=== PATIENT | male | born 2005 | race Two or more races ===

== ENCOUNTER 2024-02-29 18:41 | Observation (INO) ==
[2024-02-29] MEDS: SODIUM CHLORIDE 0.9% 1,000 ML IV ONE (19:34)
[2024-02-29] MEDS: KETOROLAC TROMETHAMINE 15 MG/ML VIAL IV STA (19:37)
[2024-02-29] MEDS: ONDANSETRON INJ 2 MG/ML 2 ML VIAL IV STA (19:38)
[2024-02-29 19:48] LABS: Basophils # (auto) 0.01 K/uL (0.00-0.20); Basophils % (auto) 0.1 %; Eosinophils # (auto) 0.06 K/uL (0.00-0.50); Eosinophils % (auto) 0.5 %; Hematocrit (blood only) 44.9 % (42.0-52.0); Hemoglobin 15.3 g/dl (14.0-18.0); Immature Granulocytes # (auto) 0.03 K/uL (0.01-0.20); Immature Granulocytes % (auto) 0.3 %; Lymphocytes # (auto) 1.28 K/uL (1.20-3.40); Lymphocytes % (auto) 11.5 %; Mean Corpuscular Hemoglobin 30.6 pg (25.0-34.0); Mean Corpuscular Hgb Conc 34.1 g/dL (32.0-36.0); Mean Corpuscular Volume 89.8 fL (80.0-100.0); Mean Platelet Volume 9.6 fL (9.4-12.4); Monocytes # (auto) 0.53 K/uL (0.11-0.59); Monocytes % (auto) 4.7 %; Neutrophils # (auto) 9.26 K/uL (1.40-6.50); Neutrophils % (auto) 82.9 %; Platelet Count 196 K/uL (130-400); RDW Coefficient of Variation 12.2 % (11.5-14.5); White Blood Count 11.17 K/ul (4.8-10.8)
[2024-02-29 20:03] LABS: Alanine Aminotransferase 24 U/L (7-52); Albumin Level 4.7 gm/dl (3.4-5.0); Alkaline Phosphatase 78 U/L (34-104); Anion Gap 4 (3-11); Aspartate Aminotransferase 22 U/L (13-39); BUN Creatinine Ratio 16.9 (10-20); Bilirubin Direct 0.2 mg/dl (0-0.2); Blood Urea Nitrogen 13 mg/dl (6-23); Calcium 9.9 mg/dl (8.6-10.3); Carbon Dioxide 30 mmol/L (21-32); Chloride 104 mmol/L (98-107); Creatinine Clr Calc Pharmacy 135.5 ml/min; Est GFR (African American) > 150.0 ml/min; Est GFR (Non-African American) 130.6 ml/min; Glucose 141 mg/dl (70-99(Fasting)); Lipase 10 U/L (11-82); Potassium 3.5 mmol/L (3.5-5.1); Sodium 138 mmol/L (136-145); Total Protein 7.2 gm/dl (6.0-8.3)
[2024-02-29] MEDS: OPTIRAY 320 100ml IV ONE (22:08)
--- NOTE | 2024-03-01 00:14 | CT Scan Report ---
Exam(s): CT ABDOMEN + PELVIS With Contrast IV Amt: 93 ml optiray 320 EXAM: CT Abdomen and Pelvis With Intravenous Contrast CLINICAL HISTORY: Reason for exam: rlq pain ro appy. TECHNIQUE: Axial computed tomography images of the abdomen and pelvis with intravenous contrast. CTDI is 9.16 mGy and DLP is 424.16 mGy-cm. Automated exposure control was utilized for the study. A dose lowering technique was utilized adhering to the principles of ALARA. CONTRAST: Patient received 93 ml optiray 320 of IV contrast COMPARISON: No relevant prior studies available. FINDINGS: Lung bases: Unremarkable. No mass. No consolidation. ABDOMEN: Liver: Unremarkable. No mass. Gallbladder and bile ducts: Unremarkable. No calcified stones. No ductal dilation. Pancreas: Unremarkable. No mass. No ductal dilation. Spleen: Unremarkable. No splenomegaly. Adrenals: Unremarkable. No mass. Kidneys and ureters: Unremarkable. No hydronephrosis or delayed nephrogram. Stomach and bowel: Mild fecal retention, correlate for constipation. No obstruction. No mucosal thickening. PELVIS: Appendix: Nondistended appendix with minimal wall thickening. This may represent mild appendicitis. Bladder: Unremarkable. No mass. Reproductive: Unremarkable as visualized. ABDOMEN and PELVIS: Intraperitoneal space: Unremarkable. No free air. No significant fluid collection. Bones/joints: No acute fracture. No dislocation. Soft tissues: Unremarkable. Vasculature: Unremarkable. No abdominal aortic aneurysm. Lymph nodes: Unremarkable. No enlarged lymph nodes. IMPRESSION: 1. Nondistended appendix with minimal wall thickening. This may represent mild appendicitis. 2. Mild fecal retention, correlate for constipation. Communications: Verify Receipt Electronically signed by: Nadir Barrientos MD 03/01/24 00:13 AM
[2024-03-01] MEDS ORDERED: ONDANSETRON INJ 2 MG/ML 2 ML VIAL IV PRN (00:23)
[2024-03-01] MEDS ORDERED: ACETAMINOPHEN 325 MG TAB PO PRN (00:23)
[2024-03-01] MEDS ORDERED: KETOROLAC TROMETHAMINE 15 MG/ML VIAL IV PRN (00:32)
--- NOTE | 2024-03-01 00:36 | Emergency Department Note ---
History of Present Illness General Chief Complaint: Constipation Stated Complaint: CONSTIPATED Time Seen by Provider: 02/29/24 19:06 History of Present Illness Provider Complaint: abdominal pain Onset (ago): 2 day(s) Pain Consistency: constant Location: periumbilical Radiation: RLQ Severity: moderate Maximum Pain Intensity: 5 Current Pain Intensity: 5 Quality: + stabbing and + sharp Relieved By: + nothing Exacerbated By: + nothing Context: + history of similar episodes; no possible food poisoning Associated Symptoms: + constipation; no nausea, no vomiting, no diarrhea, no fever, no chills, no dysuria, no hematemesis, no hematochezia, no melena, no hematuria, no headache, no back pain, no chest pain and no breathing difficulty Allergies Allergy/AdvReac Type Severity Reaction Status Date / Time No Known Allergies Allergy Verified 02/29/24 19:39 Past Med/Surg History Problem List (Updated 03/01/24 @ 00:35 by Howard Figueroa MD) Appendicitis (Acute) Medical History No pertinent past medical history No pertinent family history Surgical History No pertinent past surgical history Social History Smoking Status: Never smoker Preferred Language: Czech Feels Safe at Home: Yes Physical Exam 2 Vital Signs: Vital Signs - 24 hr 02/29/24 18:54 02/29/24 20:42 02/29/24 21:00 Temperature 36.8 C Temperature Source Temporal Artery Sc an Pulse Rate 94 H 68 Pulse Rate [Finger ] 68 Pulse Rhythm Regular Respiratory Rate 20 18 18 Respiratory Effort / Characteristics Non-Labored Sponta neous Non-Labored Respiratory Depth Normal Normal Respiratory Patter n Regular Blood Pressure 130/78 Blood Pressure [Le ft Arm] 105/65 Blood Pressure Ilana n 95 Blood Pressure Ilana n [Left Arm] 78 Pulse Oximetry 98 99 99 Oxygen Delivery Me thod Room Air Room Air Sepsis Recent Feve r Within 48 Hours No Sepsis New/Unexpla ined Change in Men adrienne Status N/A Sepsis Action Take n by Nursing No Action Required 02/29/24 22:00 Temperature Temperature Source Pulse Rate Pulse Rate [Finger ] 65 Pulse Rhythm Respiratory Rate 18 Respiratory Effort / Characteristics Non-Labored Respiratory Depth Normal Respiratory Patter n Blood Pressure Blood Pressure [Le ft Arm] 118/67 Blood Pressure Ilana n Blood Pressure Ilana n [Left Arm] 84 Pulse Oximetry 100 Oxygen Delivery Me thod Room Air Sepsis Recent Feve r Within 48 Hours Sepsis New/Unexpla ined Change in Men adrienne Status Sepsis Action Take n by Nursing Physical Exam: Physical Exam GENERAL: oriented to person, place, and time. appears well-developed and well- nourished. She does not appear distressed. HENT: Exam performed. -Head: Normocephalic and atraumatic. -Right Ear: External ear normal. No mastoid erythema -Left Ear: External ear normal. No mastoid erythema -Mouth/Throat: The oropharynx is clear and moist. No trismus in the jaw. No dental abscesses or uvula swelling. No oropharyngeal exudate or tonsillar abscesses. EYES: Conjunctivae and EOM are normal.Right eye exhibits no discharge. Left eye exhibits no discharge. No scleral icterus. NECK: Normal range of motion. Neck supple. No JVD present. No tracheal deviation and normal range of motion present. CV: Normal rate, regular rhythm, normal heart sounds and intact distal pulses. There is no peripheral edema. Palpable radial pulses bue. PULM/CHEST: Effort normal and breath sounds normal. No respiratory distress. No stridor. no wheezes.no rales. -Chest Wall: no tenderness to palpation ABD: The abdomen is soft. Bowel sounds are normal. no distension. No mass is present. There is tenderness to palpation of the right lower quadrant. There is no rebound, no guarding, no Dalton's sign. Rovsig negative MUSC/SKEL: Normal range of motion. There is no peripheral edema, tenderness or deformity. NEURO: Motor and sensation grossly intact. SKIN: Skin is warm and dry. not diaphoretic. PSYCH: normal mood and affect. Behavior is normal. Judgment and thought content normal. Course Course 1905: The patient was evaluated in room D7. A complete history and physical exam was performed Cardiac monitoring: An order was placed for continuous cardiac monitoring. The monitor shows a rate of 60 with sinus rhythm interpreted by me 0033: Vital signs stable. Labs show minimal leukocytosis of 11.17. CT of the abdomen pelvis with IV and oral contrast shows a possible early appendicitis. Discussed the case with general surgery on-call Dr. Yana Crenshaw. She [facility] and she will evaluate the patient in the morning for the OR versus medical treatment. She recommends no antibiotics at this time. Administered Medications Discontinued Medications Sodium Chloride (Nss) 1,000 mls @ 999 mls/hr IV .Q1H1M ONE Stop: 02/29/24 20:29 Last Infusion: 02/29/24 21:05 Dose: Infused Documented By: JUAN J Admin: 02/29/24 19:34 Dose: 999 mls/hr Documented By: ERICKA Ioversol (Optiray 320 100ml) 93 ml IV ONCE ONE Stop: 02/29/24 22:09 Last Admin: 02/29/24 22:08 Dose: 93 ml Documented By: ANALY Ketorolac Tromethamine (Ketorolac Tromethamine 15 Mg/Ml Vial) 15 mg IV NOW STA Stop: 02/29/24 19:30 Last Admin: 02/29/24 19:37 Dose: 15 mg Documented By: ERICKA Ondansetron HCl (Ondansetron Inj 2 Mg/Ml 2 Ml Vial) 4 mg IV NOW STA Stop: 02/29/24 19:30 Last Admin: 02/29/24 19:38 Dose: 4 mg Documented By: ERICKA Medical Decision Making Laboratory Data Attestation: I reviewed the patient's lab results. 02/29/24 19:30 02/29/24 19:30 Lab Results 02/29/24 Range/Units 19:30 WBC 11.17 H (4.8-10.8) K/ul RBC 5.00 (4.70-6.10) M/uL Hgb 15.3 (14.0-18.0) g/dl Hct 44.9 (42.0-52.0) % MCV 89.8 (80.0-100.0) fL MCH 30.6 (25.0-34.0) pg MCHC 34.1 (32.0-36.0) g/dL RDW Std Deviation 40.0 (36.4-46.3) fL RDW Coeff of Ange 12.2 (11.5-14.5) % Plt Count 196 (130-400) K/uL MPV 9.6 (9.4-12.4) fL Immature Gran % (Auto) 0.3 % Neut % (Auto) 82.9 % Lymph % (Auto) 11.5 % [place] % (Auto) 4.7 % Eos % (Auto) 0.5 % Baso % (Auto) 0.1 % Neut # (Auto) 9.26 H (1.40-6.50) K/uL Lymph # (Auto) 1.28 (1.20-3.40) K/uL [place] # (Auto) 0.53 (0.11-0.59) K/uL Eos # (Auto) 0.06 (0.00-0.50) K/uL Baso # (Auto) 0.01 (0.00-0.20) K/uL Immature Gran # (Auto) 0.03 (0.01-0.20) K/uL Sodium 138 (136-145) mmol/L Potassium 3.5 (3.5-5.1) mmol/L Chloride 104 (98-107) mmol/L Carbon Dioxide 30 (21-32) mmol/L Anion Gap 4 (3-11) BUN 13 (6-23) mg/dl Creatinine 0.77 (0.6-1.4) mg/dl Est Cr Clr Drug Dosing 135.5 ml/min Est GFR ( Amer) > 150.0 ml/min Est GFR (Non-Af Amer) 130.6 ml/min BUN/Creatinine Ratio 16.9 (10-20) Glucose 141 H (70-99(Fasting)) mg/dl Calcium 9.9 (8.6-10.3) mg/dl Total Bilirubin 1.0 (0.2-1.0) mg/dl Direct Bilirubin 0.2 (0-0.2) mg/dl AST 22 (13-39) U/L ALT 24 (7-52) U/L Alkaline Phosphatase 78 (34-104) U/L Total Protein 7.2 (6.0-8.3) gm/dl Albumin 4.7 (3.4-5.0) gm/dl Lipase 10 L (11-82) U/L Imaging Data Radiologist's Impression: Abdomen/Pelvis CT 02/29/24 19:29 CR Exam(s): CT ABDOMEN + PELVIS With Contrast IV Amt: 93 ml optiray 320 EXAM: CT Abdomen and Pelvis With Intravenous Contrast CLINICAL HISTORY: Reason for exam: rlq pain ro appy. TECHNIQUE: Axial computed tomography images of the abdomen and pelvis with intravenous contrast. CTDI is 9.16 mGy and DLP is 424.16 mGy-cm. Automated exposure control was utilized for the study. A dose lowering technique was utilized adhering to the principles of ALARA. CONTRAST: Patient received 93 ml optiray 320 of IV contrast COMPARISON: No relevant prior studies available. FINDINGS: Lung bases: Unremarkable. No mass. No consolidation. ABDOMEN: Liver: Unremarkable. No mass. Gallbladder and bile ducts: Unremarkable. No calcified stones. No ductal dilation. Pancreas: Unremarkable. No mass. No ductal dilation. Spleen: Unremarkable. No splenomegaly. Adrenals: Unremarkable. No mass. Kidneys and ureters: Unremarkable. No hydronephrosis or delayed nephrogram. Stomach and bowel: Mild fecal retention, correlate for constipation. No obstruction. No mucosal thickening. PELVIS: Appendix: Nondistended appendix with minimal wall thickening. This may represent mild appendicitis. Bladder: Unremarkable. No mass. Reproductive: Unremarkable as visualized. ABDOMEN and PELVIS: Intraperitoneal space: Unremarkable. No free air. No significant fluid collection. Bones/joints: No acute fracture. No dislocation. Soft tissues: Unremarkable. Vasculature: Unremarkable. No abdominal aortic aneurysm. Lymph nodes: Unremarkable. No enlarged lymph nodes. IMPRESSION: 1. Nondistended appendix with minimal wall thickening. This may represent mild appendicitis. 2. Mild fecal retention, correlate for constipation. Communications: Verify Receipt Electronically signed by: Nadir Barrientos MD 03/01/24 00:13 AM [facility] Narrative 1906: The patient was evaluated in room D7. A complete history and physical exam was performed Cardiac monitoring: An order was placed for continuous cardiac monitoring. The monitor shows a rate of 60 with sinus rhythm interpreted by me 0033: Vital signs stable. Labs show minimal leukocytosis of 11.17. CT of the abdomen pelvis with IV and oral contrast shows a possible early appendicitis. Discussed the case with general surgery on-call Dr. Yana Crenshaw. She recommends admitting the patient to her service tonight and she will evaluate the patient in the morning for the OR versus medical treatment. She recommends no antibiotics at this time. Impression & Plan Appendicitis Discharge Plan Visit Data Chief Complaint: Constipation Stated Complaint: CONSTIPATED ED Provider: Howard Figueroa Discharge Problem: Appendicitis Patient Disposition: Being Evaluated by Surgeon Forms Stand Alone Forms: My [facility] Referrals Referrals: [facility] [Primary Care Provider] - Discharge Problem: Appendicitis Qualifiers: Appendicitis type: unspecified Qualified Code(s): K37 - Unspecified appendicitis
[2024-03-01] MEDS: SODIUM CHLORIDE 0.9% 1,000 ML IV SCH ×2 (01:12→01:27)
[2024-03-01 02:26] VITALS: TEMP 97.9
[2024-03-01 07:05] LABS: Basophils # (auto) 0.02 K/uL (0.00-0.20); Basophils % (auto) 0.3 %; Eosinophils # (auto) 0.15 K/uL (0.00-0.50); Hemoglobin 14.3 g/dl (14.0-18.0); Immature Granulocytes # (auto) 0.04 K/uL (0.01-0.20); Immature Granulocytes % (auto) 0.5 %; Lymphocytes # (auto) 2.02 K/uL (1.20-3.40); Lymphocytes % (auto) 27.4 %; Mean Corpuscular Hemoglobin 30.7 pg (25.0-34.0); Mean Corpuscular Hgb Conc 33.3 g/dL (32.0-36.0); Mean Corpuscular Volume 92.3 fL (80.0-100.0); Mean Platelet Volume 9.8 fL (9.4-12.4); Monocytes # (auto) 0.76 K/uL (0.11-0.59); Monocytes % (auto) 10.3 %; Neutrophils # (auto) 4.39 K/uL (1.40-6.50); Neutrophils % (auto) 59.5 %; Platelet Count 179 K/uL (130-400); RDW Coefficient of Variation 12.3 % (11.5-14.5); RDW Standard Deviation 41.6 fL (36.4-46.3); Red Blood Count 4.66 M/uL (4.70-6.10); White Blood Count 7.38 K/ul (4.8-10.8)
--- NOTE | 2024-03-01 07:50 | History & Physical Report ---
<Statement entered by Edin West, - 03/01/24 16:14> I have seen and examined this patient this am. I agree with this plan. Deny will follow up with me in the office in 1 week and is advised to return to the ED should he experience worsening abdominal symptoms, fevers or chills. Date of Service March 01, 2024 Assessment & Plan (1) Constipation: Plan: This is a 19yM with no significant PMH who presented to the [facility] ED on 02/28 with complaints of abdominal pain and constipation. He denies any nausea/vomiting, fevers/chills, CP/SOB. He presented to our ER for further evaluation where a CT a/p was obtained that revealed a nondistended appendix with minimal wall thickening. This may represent mild appendicitis. Patient has no prior abdominal surgical history. The patient was admitted under the surgical service and kept NPO with IVF, without antibiotics. He does report feeling better this morning. Labs on admission showed WBC 11, now today 7.3, hbg 14.3. Vitals show patient is afebrile with HRs ranging from 50-100. On exam abdomen is soft, non distended, with mild discomfort to palpation in the supra-pubic and RLQ regions. Thus far patient reports symptoms improved and WBC also normalized. He does remain with some discomfort to palpation in the lower abdomen, particularly on the right. Will discuss with Dr. West plans to continue to monitor vs. surgical intervention. Continue NPO/IVF for now until decision finalized. (2) Abdominal pain: Admission and Anticipated Discharge Date Admission Date: March 01, 2024 History of Present Illness Primary Care Provider: [facility] This is a 19yM with no significant PMH who presented to the [facility] ED on 02/28 with complaints of abdominal pain and constipation. He states his pain was all over then is now located in supra-pubic and RLQ regions. This started yesterday. He denies any nausea/vomiting, fevers/chills, CP/SOB. He does note constipation. He presented to our ER for further evaluation where a CT a/p was obtained that revealed a nondistended appendix with minimal wall thickening. This may represent mild appendicitis. Patient has no prior abdominal surgical history. He does report feeling better this morning. Allergies Allergy/AdvReac Type Severity Reaction Status Date / Time No Known Allergies Allergy Verified 02/29/24 19:39 Home Medications Medication Instructions Recorded Confirmed Type esomeprazole magnesium 40 mg 40 mg PO .TODAY 03/01/24 03/01/24 History capsule,delayed release (Nexium) Past Med/Surg History Problem List (Updated 03/01/24 @ 09:50 by Susy Ocasio PA-C) Abdominal pain Constipation Appendicitis (Acute) Medical History No pertinent past medical history No pertinent family history Surgical History No pertinent past surgical history Social History Smoking Status: Never smoker Hx Alcohol Use: No Hx Substance Use: No Preferred Language: Samoan Communication Ability: Effective [place] Operator Required: No Beliefs That Will Affect Care: None Current Living Situation: Alone Current Living Situation Comment: apartment off campus. [employer] student Other Information That Helps Us Care for You: No Feels Safe at Home: Yes Safety Concerns: Feels Safe At This Time Assistive Devices: None Review of Systems Constitutional: no fever and no chills Respiratory: no dyspnea Cardiovascular: no chest pain Gastrointestinal: + abdominal pain and + constipation; no nausea and no vomiting Genitourinary: no problem reported Physical Exam Physical Exam: awake/alert, no distress Constitutional: + thin Respiratory: normal respiratory effort Gastrointestinal (Abdomen): Inspection/Auscultation: abdomen not distended Percussion/Palpation: + abdomen tender (some mild discomfort suprapubic and RLQ regions) and abdomen soft; no guarding Results & Data Results & Data Vital Signs (Past 12 Hours) Vital Signs Temp Pulse Pulse Resp BP Pulse Ox O2 Del Method 03/01/24 02:32 Room Air 03/01/24 02:32 97.9 F 58 L 15 112/65 92 Room Air 03/01/24 02:25 97.9 F 58 L 15 112/65 92 Room Air 03/01/24 01:49 Room Air 03/01/24 01:26 Room Air 03/01/24 01:11 67 18 127/62 99 Room Air 02/29/24 22:00 65 18 118/67 100 Room Air 02/29/24 21:00 68 18 99 Room Air 02/29/24 20:42 68 18 105/65 99 Diagnostic Findings ADDENDUM ADDENDUM: 03/01/24 00:19 Verify Receipt Verified receipt with ER clerk Hough giving report to Dr. Figueroa on 03/01 00:19 (-04:00) Electronically signed by: Nadir Barrientos MD Electronically signed by: Nadir Barrientos MD 03/01/24 00:13 AM ADDENDUM END Exam(s): CT ABDOMEN + PELVIS With Contrast IV Amt: 93 ml optiray 320 EXAM: CT Abdomen and Pelvis With Intravenous Contrast CLINICAL HISTORY: Reason for exam: rlq pain ro appy. TECHNIQUE: Axial computed tomography images of the abdomen and pelvis with intravenous contrast. CTDI is 9.16 mGy and DLP is 424.16 mGy-cm. Automated exposure control was utilized for the study. A dose lowering technique was utilized adhering to the principles of ALARA. CONTRAST: Patient received 93 ml optiray 320 of IV contrast COMPARISON: No relevant prior studies available. FINDINGS: Lung bases: Unremarkable. No mass. No consolidation. ABDOMEN: Liver: Unremarkable. No mass. Gallbladder and bile ducts: Unremarkable. No calcified stones. No ductal dilation. Pancreas: Unremarkable. No mass. No ductal dilation. Spleen: Unremarkable. No splenomegaly. Adrenals: Unremarkable. No mass. Kidneys and ureters: Unremarkable. No hydronephrosis or delayed nephrogram. Stomach and bowel: Mild fecal retention, correlate for constipation. No obstruction. No mucosal thickening. PELVIS: Appendix: Nondistended appendix with minimal wall thickening. This may represent mild appendicitis. Bladder: Unremarkable. No mass. Reproductive: Unremarkable as visualized. ABDOMEN and PELVIS: Intraperitoneal space: Unremarkable. No free air. No significant fluid collection. Bones/joints: No acute fracture. No dislocation. Soft tissues: Unremarkable. Vasculature: Unremarkable. No abdominal aortic aneurysm. Lymph nodes: Unremarkable. No enlarged lymph nodes. IMPRESSION: 1. Nondistended appendix with minimal wall thickening. This may represent mild appendicitis. 2. Mild fecal retention, correlate for constipation. Communications: Verify Receipt Electronically signed by: Nadir Barrientos MD 03/01/24 00:13 AM Code Status & VTE Plan VTE Prophylaxis Plan VTE Prophylaxis will be ordered: Yes Reason for no VTE drug order: Treatment not indicated PG Care Time/CCT Total # of Minutes Spent Total Time Spent with Patient: Total time spent is greater than 50% in coordination of care (as documented) at patient's floor/unit and/or counseling patient: Coding Level of Care Code 57844 INT INP/OBS CARE 2/55MIN Diagnoses Constipation K59.00 Abdominal pain R10.9
[2024-03-01 08:07] VITALS: BP 101/58; PULSE 108; RESP 18; O2SAT 98
[2024-03-01] MEDS: POLYETHYLENE (MIRALAX) 17 GM PACK PO SCH (11:05)
--- NOTE | 2024-03-09 09:16 | Discharge Summary ---
Date of Service March 01, 2024 Admission HPI Per Admitting Provider This is a 19yM with no significant PMH who presented to the [facility] ED on 02/28 with complaints of abdominal pain and constipation. He states his pain was all over then is now located in supra-pubic and RLQ regions. This started yesterday. He denies any nausea/vomiting, fevers/chills, CP/SOB. He does note constipation. He presented to our ER for further evaluation where a CT a/p was obtained that revealed a nondistended appendix with minimal wall thickening. This may represent mild appendicitis. Patient has no prior abdominal surgical history. He does report feeling better this morning. Principal Diagnosis abdominal pain constipation Discharge Exam awake/alert, no distress Constitutional + thin Respiratory normal respiratory effort Gastrointestinal (Abdomen) Inspection/Auscultation: abdomen not distended Percussion/Palpation: + abdomen tender (some mild discomfort suprapubic and RLQ regions) and abdomen soft; no guarding Discharge Data Allergies Allergy/AdvReac Type Severity Reaction Status Date / Time No Known Allergies Allergy Verified 02/29/24 19:39 Consultations 03/01/24 00:23 ED Decision to Admit Stat Ordered Studies 02/29/24 19:29 CT abd pelvis oral and IV con Stat Hospital Course (1) Abdominal pain: This is a 19yM who presented to the [facility] ED on 03/01/24 with complaints of abdominal pain and constipation. He underwent a CT a/p as part of his workup that showed a nondistended appendix with minimal wall thickening. This may represent mild appendicitis per radiologist report. WBC 11. He was having discomfort to palpation in the RLQ/supra pubic regions. The patient was admitted to the surgical service for overnight observation. He was ordered for IVF and bowel rest. No antibiotics were ordered. On repeat labs in the AM the patient's WBC downtrended to 7 and he remained afebrile. Patient reported feeling symptomatically improved from admission, but still with some lingering RLQ/suprapubic discomfort to palpation. As patient's WBC improved and symptoms overall improved the likelihood for appendicitis was lower on the differential. The patient was ordered for a diet and a bowel regimen. He was deemed stable for discharge to home with instructions to have close follow up with us in the office to see how he is doing. He was asked to purchase some stool softeners over the counter. He was given return precautions should his symptoms worsen and be more clear for possible appendicitis we would take it out at that time. Patient agreeable with the plan and instructed to see us within 1 week in the office. (2) Constipation: Total Time Total Time Spent Total Time Spent (In Minutes): 10 Discharge Plan Discharge Items Patient Disposition: Home - Self-Care Reason For Visit: ABDOMINAL PAIN Discharge Diagnosis: abdominal pain constipation Activity: Resume your previous activity Lifting: Gradually increase as tolerated Bathing: No limitations Exercise/Sports: Rest today Driving/Machine Use: Resume 1 day after discharge Non-emergency contact: Primary Care Provider and Surgeon Call non-emergency contact if: you have any medication questions, your pain is not controlled, you have a fever and your temperature is above 101.5 Follow-up/Referrals: [facility] [Primary Care Provider] - (PLEASE FOLLOW UP WITH [facility] IN 7-10 DAYS FOR A HOSPITAL FOLLOW UP.) Edin West, [Physician] - (please call the office to schedule follow up with the surgeon this week) Diet: Regular Addtl Attending Provider Instructions: Please purchase a stool softener over the counter to take daily and as needed for constipation suggestions include Miralax, Colace 100mg, or sennakot If you develop fevers/chills, nausea/vomiting, or worsening/severe abdominal pain you must return to the ER for evaluation to exclude the possibility of appendicitis Pending Studies at Discharge: No Stand-Alone Forms: My [facility], Smoking Cessation Medications and DC Order Prescriptions: Continued esomeprazole magnesium [Nexium] 40 mg Capsule,Delayed Release(Dr/Ec) 40 mg PO .TODAY Discharge Orders: Discharge Order (Routine); Ordered 03/01/24 Ordered By: Susy Damon/Other Patient Handouts: Polyethylene Glycol 3350 Powder For Oral Solution, Docusate Oral Capsule, Sennosides, Long-Term Oral Tablet, What Is Appendicitis? Admission Data Admit Date/Time: 03/01/24 00:26 Attending Provider: Edin West Admit Provider: Edin West Primary Care Provider: [facility] Other Providers: Edin West Other Interventions: Discharge Summary Assessment (RN) Last Done: 03/01/24 11:13 Coding Level of Care Code 53351 IN/OBS DISCH 30 MIN/LESS Diagnoses Abdominal pain R10.9 Constipation K59.00
== END 2024-03-01 13:53 | disposition home or self-care (01) ==
LOC: 3N 18:41 → ED 18:41 → 3N 03-01 01:49
DX: Z79.899 Other long term (current) drug therapy; K59.00 Constipation, unspecified; R93.3 Abnormal findings on diagnostic imaging of other parts of digestive tract; R10.9 Unspecified abdominal pain